=== PATIENT | male | born 1965 | race African-American/Black ===

== ENCOUNTER 2021-07-29 14:02 | Emergency (ER) | payer MEDICAID ==
[~2021-07-29] VITALS: Ht 170.2 cm; Wt 62.0 kg
[2021-07-29] MEDS ORDERED: IBUPROFEN 600MG TABLET PO ONE (15:30)
[2021-07-29] MEDS ORDERED: HYDROCODONE/ACETAMINOPHEN 10/325MG TABLET PO ONE (15:30)
[2021-07-29] MEDS ORDERED: DICL75TA5 MT (15:45)
[2021-07-29] MEDS ORDERED: ACET650T37 MT (15:46)
[2021-07-29] MEDS ORDERED: CYCL5TAB MT (15:46)
[2021-07-29 16:30] VITALS: BP 133/64
== END 2021-07-29 16:33 | disposition home or self-care (01) ==
LOC: ER 14:18
DX: S22.31XA Fracture of one rib, right side, initial encounter for closed fracture (principal); S27.9XXA Injury of unspecified intrathoracic organ, initial encounter; I10 Essential (primary) hypertension; V89.2XXA Person injured in unspecified motor-vehicle accident, traffic, initial encounter; Y93.89 Activity, other specified; Y92.89 Other specified places as the place of occurrence of the external cause; Y99.8 Other external cause status
CPT/HCPCS: 99283

== ENCOUNTER 2022-12-21 20:44 | Emergency (ER) | payer MEDICAID, OTHER ==
[~2022-12-21] VITALS: Ht 172.7 cm; Wt 68.0 kg
[~2022-12-21 20:44] MED LIST: ACET-3163 MT; CYCL5TAB MT; DICL75TA5 MT; LEVO-65 MT; LINE600T14 PO
[2022-12-21] MEDS ORDERED: KETOROLAC 60MG/2ML VIAL IM ONE (23:00)
[2022-12-21 23:37] VITALS: BP 128/58
== END 2022-12-22 00:58 | disposition home or self-care (01) ==
LOC: ER 20:44
DX: L89.612 Pressure ulcer of right heel, stage 2 (principal); J45.909 Unspecified asthma, uncomplicated; I10 Essential (primary) hypertension
CPT/HCPCS: 96372; 99283; J1885